=== PATIENT | female | born 1960 | race Two or more races ===

== ENCOUNTER 2021-10-05 00:56 | Inpatient (IN) | payer OTHER ==
[~2021-10-05] VITALS: Ht 157.5 cm; Wt 67.1 kg
[2021-10-05] MEDS ORDERED: ACETAMINOPHEN 325MG TABLET PO STA (02:08)
[2021-10-05] MEDS ORDERED: SODIUM CHLORIDE 0.9% 1000ML BAG (SEPSIS BOLUS) IV ONE (02:15)
[2021-10-05] MEDS ORDERED: ONDANSETRON HCL 4MG/2ML INJ IV ONE (02:15)
[2021-10-05 02:24] LABS: BASOPHILS % 0.3 % (0.0-2.0); HEMATOCRIT. 29.3 % (36.0-48.0); HEMOGLOBIN. 9.3 g/dL (12.0-16.0); LYMPHOCYTES % 11.4 % (20.0-50.0); MEAN CORPUSCULAR VOLUME 69.1 fL (81.0-99.0); MEAN PLATELET VOLUME 9.3 fl (7.4-10.4); MONOCYTES % 7.5 % (2.0-8.0); NEUTROPHILS % 80.8 % (40.0-76.0); PLATELET 181 x1000/uL (130-400); RED BLOOD CELL COUNT 4.25 mill/uL (4.2-5.4); RED CELL DISTRIBUTION WIDTH 15.3 % (11.6-14.6)
[2021-10-05 02:28] LABS: PLATELET ESTIMATE NORMAL
[2021-10-05 02:31] LABS: CHLORIDE 106 mEq/L (98-107)
[2021-10-05] MEDS ORDERED: CEFTRIAXONE 1 G PREMIX 50 ML IV NR (04:00)
[2021-10-05 07:55] VITALS: BP 98/42
[2021-10-05 08:00] VITALS: BP 98/42
[2021-10-05] MEDS ORDERED: CEFTRIAXONE 1 G PREMIX 50 ML IV SCH (10:00)
[2021-10-05] MEDS ORDERED: ONDANSETRON HCL 4MG/2ML INJ IV PRN (10:00)
[2021-10-05] MEDS ORDERED: ACETAMINOPHEN 325MG TABLET PO PRN (10:00)
[2021-10-05 12:00] VITALS: BP 98/40
[2021-10-05] MEDS: SODIUM CHLORIDE 0.45% 1,000 ML IV SCH (14:57)
[2021-10-05 16:00] VITALS: BP 109/79
[2021-10-05 16:53] LABS: CLARITY URINE CLOUDY (CLEAR); COLOR URINE YELLOW (YELLOW); KETONES URINE NEGATIVE (NEGATIVE); LEUKOCYTE ESTERASE URINE 2+ (NEGATIVE); NITRITE URINE NEGATIVE (NEGATIVE); OCCULT BLOOD URINE 1+ (NEGATIVE); PH URINE 5.5 (4.5-8.0); PROTEIN URINE 1+ (NEGATIVE); SPECIFIC GRAVITY URINE 1.015 (1.005-1.030); UROBILINOGEN URINE 0.2 E.U./dL (0.2-1.0)
[2021-10-05 20:00] VITALS: BP 100/68
[2021-10-05] MEDS ORDERED: ZOLPIDEM TARTRATE 5MG TABLET PO PRN (20:15)
[2021-10-06] VITALS: BP 123/54
[2021-10-06 04:00] VITALS: BP 128/63
[2021-10-06] MEDS: SODIUM CHLORIDE 0.45% 1,000 ML IV SCH (04:41)
[2021-10-06] MEDS ORDERED: CEFTRIAXONE 1,000 MG in DEXTROSE 5% WATER 50 ML IV SCH (06:00)
[2021-10-06 08:00] VITALS: BP 144/64
[2021-10-06 12:00] VITALS: BP 133/63
[2021-10-06] MEDS ORDERED: LEVO500T90 MT (12:26)
[2021-10-06 12:39] VITALS: BP 133/63
[2021-10-08] MEDS ORDERED: CEPH500C2 MT (07:52)
== END 2021-10-06 13:25 | disposition home or self-care (01) | DRG 872 ==
LOC: ER 00:56 → 8WST 05:12 → ENRESERV 07:16
PROVIDERS: ADMIT Internal Medicine; ATTEND Internal Medicine
DX: A41.9 Sepsis, unspecified organism (principal); N13.6 Pyonephrosis; J98.11 Atelectasis; D64.9 Anemia, unspecified; J45.909 Unspecified asthma, uncomplicated; Z20.822 Contact with and (suspected) exposure to COVID-19; Z90.710 Acquired absence of both cervix and uterus
CPT/HCPCS: 36415; 71045; 74176; 80053; 81003; 83605; 84145; 85025; 87077; 87186; 87426; 93005; 99291; J0696; J2405; J7030; J7060